=== PATIENT | female | born 1995 | race Caucasian/White ===

== ENCOUNTER → 2018-04-20 09:46 | Outpatient (CLI) | payer BC, SELFPAY ==
--- NOTE | 2018-04-20 09:49 | ECHOD_ITS ---
Reason For Study: Palpitations Procedure This was a 2D Doppler, Color Flow transthoracic echocardiogram. The exam was of adequate technical quality. Exam performed in department. Left Ventricle Normal LV size. Left ventricular systolic function is normal. The estimated ejection fraction is 65 %. No evidence for diastolic dysfunction. No regional wall motion abnormalities noted. Right Ventricle Normal RV size. Normal systolic function. Atria Normal left atrium. Normal right atrium. Probable chiari network. No doppler evidence for ASD. Mitral Valve There is no mitral annular calcification. Normal mitral valve. Trivial mitral valve insufficiency. Tricuspid Valve Normal tricuspid valve. Trivial tricuspid valve insufficiency. Right ventricular systolic pressure estimated to be 18 mmHg. Aortic Valve Trisinus/trileaflet aortic valve. Normal aortic valve. Trivial aortic valve insufficiency. Pulmonic Valve The pulmonic valve is not well visualized. Great Vessels Normal sized aortic root. Pericardium/Pleural No pericardial effusion. MMode/2D Measurements & Calculations LVIDd: 4.0 cm IVSd: 0.65 cm Ao root diam: 2.5 cm LVIDs: 2.5 cm LVPWd: 0.87 cm LA dimension: 2.4 cm RVDd: 3.6 cm FS: 38.0 % LAV(MOD-bp): 36.5 ml LA A4 area: 13.6 cm2 RA A4 area: 12.6 cm2 LAV(MOD-bp) Indexed: 22.8 ml/m2 LAV(MOD-sp2): 33.7 ml LAV(MOD-sp4): 30.7 ml Time Measurements MV dec time: 0.20 sec Doppler Measurements & Calculations MV E max francesco: 92.5 cm/sec Lat Peak E' Francesco: 23.0 cm/sec Med Peak E' Francesco: 17.2 cm/sec MV A max francesco: 52.1 cm/sec E/E' lat: 4.0 E/E' med: 5.4 MV E/A: 1.8 MV V2 max: 110.7 cm/sec MV P1/2t max francesco: 111.3 cm/sec Ao V2 max: 120.7 cm/sec MV max P.9 mmHg MV P1/2t: 47.1 msec Ao max P.8 mmHg MV V2 mean: 53.4 cm/sec MV dec slope: 692.8 cm/sec2 Ao V2 mean: 82.8 cm/sec MV mean P.4 mmHg MVA(P1/2t): 4.7 cm2 Ao mean P.2 mmHg MV V2 VTI: 23.0 cm Ao V2 VTI: 25.0 cm AI max francesco: 375.5 cm/sec LV V1 max: 108.0 cm/sec PA V2 max: 100.2 cm/sec AI max P.4 mmHg LV V1 max P.7 mmHg AI dec slope: 281.2 cm/sec2 LV V1 mean P.4 mmHg AI P1/2t: 391.1 msec LV V1 mean: 73.5 cm/sec LV V1 VTI: 23.0 cm TR max francesco: 190.8 cm/sec TR max P.6 mmHg Interpretation Summary Left ventricular systolic function is normal. The estimated ejection fraction is 65 %. Probable chiari network. Trivial mitral valve insufficiency. Trivial tricuspid valve insufficiency. Trivial aortic valve insufficiency. Right ventricular systolic pressure estimated to be 18 mmHg. No evidence for diastolic dysfunction. Ordering Physician: Nikos Arevalo Referring Physician: Nikos Arevalo Performed By: Darren Oneill RCS
== END ==
PROVIDERS: Referring Provider Internal Medicine Cardiovascular Disease; Visit Provider Internal Medicine Cardiovascular Disease
DX: R00.2 Palpitations (principal)
CPT/HCPCS: 93306

== ENCOUNTER → 2018-04-20 09:54 | Outpatient (REF) | payer BC, SELFPAY | LOC: CVS 09:54 | PROVIDERS: Referring Provider Internal Medicine Cardiovascular Disease; Visit Provider Internal Medicine Cardiovascular Disease | DX: R00.2 Palpitations (principal) | CPT/HCPCS: 93270 ==